=== PATIENT | female | born 1995 | race African-American/Black ===

== ENCOUNTER 2017-02-11 17:23 | Emergency (ER) | payer SELFPAY ==
[~2017-02-11] VITALS: Ht 161.3 cm; Wt 72.5 kg
[2017-02-11 17:28] VITALS: BP 131/72; PULSE 85; RESP 15; TEMP 98; O2SAT 98
[2017-02-11] MEDS ORDERED: CEPH-460 PO (17:53)
[2017-02-11] MEDS ORDERED: IBUP800T23 PO (17:53)
--- NOTE | 2017-02-11 17:55 | PD ---
HPI Chief Complaint: Laceration/Skin Injury Time Seen by Provider: 17:51 Travel History International Travel<30 days: No Contact w/Intl Traveler<30days: No Traveled to known affect area: No History of Present Illness HPI 21-year-old female presents emergency Department with complaint of a laceration to her right pinky finger from a knife while cutting a potato. Reporting updating her tetanus vaccination. Reports numbness to the finger but denies loss of sensation. Has decreased range of motion at the DIP joint of the pinky finger. Has applied pressure and a dressing to control bleeding. Has no other medical complaints. No known allergies. No other modifying factors or associated signs and symptoms. PFSH Past Medical History ?: Not LMP: 01/09/17 Social History Tobacco Use: No Allergies-Medications (Allergen,Severity, Reaction): Coded Allergies: No Known Allergies (Unverified , 02/11/17) Reported Meds & Prescriptions Reported Meds & Active Scripts Active Ibuprofen 800 Mg Tab 800 Mg PO Q6HR PRN Keflex (Cephalexin) 500 Mg Cap 500 Mg PO Q8H 7 Days Review of Systems Except as stated in HPI: all other systems reviewed are Neg Physical Exam Narrative GENERAL: Well-nourished, well-developed female patient, in no acute distress SKIN: Warm and dry. Approximately 1 cm laceration to the palmar aspect of the fifth digit just above the PIP joint; bleeding controlled; possible flexor tendon laceration; patient is unable to flex at the DIP joint; good cap refill; finger with good opposition; sensory intact. Laceration is approximately 0.5 cm deep. HEAD: Atraumatic. Normocephalic. EYES: Pupils equal and round. No scleral icterus. No injection or drainage. ENT: Mucosa pink and moist. Airway patent. NECK: Trachea midline. CARDIOVASCULAR: Regular rate. RESPIRATORY: No accessory muscle use. GASTROINTESTINAL: Round. MUSCULOSKELETAL: No obvious deformities. No clubbing. No cyanosis. No edema. NEUROLOGICAL: Awake and alert. Oriented 3. No obvious cranial nerve deficits. Motor grossly within normal limits. Normal speech. PSYCHIATRIC: Appropriate mood and affect; insight and judgment normal. Data Data Last Documented VS Vital Signs Date Time Temp Pulse Resp B/P Pulse Ox O2 Delivery O2 Flow Rate FiO2 02/11/17 17:28 98.0 85 15 131/72 98 Orders Bupivacaine Pf 0.5% Inj (Marcaine Pf 0.5 (02/11/17 18:00) Lidocaine 1% Inj (50 Ml) (Xylocaine 1% I (02/11/17 18:00) Ibuprofen (Motrin) (02/11/17 18:00) Mandatory Outpatient Referral (02/11/17 18:00) [facility] Medical Decision Making Medical Screen Exam Complete: Yes Emergency Medical Condition: Yes Medical Record Reviewed: Yes Differential Diagnosis Finger laceration, contusion, abrasion Narrative Course 21-year-old female with laceration to the palmar aspect of her right pinky finger. Up-to-date on tetanus vaccination.. Procedure note for laceration repair. 1803: Call placed to Dr. Marte, hand surgeon. 1835: I spoke with Dr. Marte, hand surgeon, and she recommended to close the laceration and for the patient to call her office on Tuesday morning at a.m. to schedule an appointment. Mandatory outpatient referral placed for patient to follow up for possible tendon laceration. Instructed patient to follow up with hand surgeon on Tuesday. Finger splint provided for support. Keflex and ibuprofen prescribed for home. Instructed patient to follow up with primary care provider. Patient verbalizes understanding and agreement with treatment plan. Patient is medically cleared and stable for discharge. Discussed reasons to return to the emergency department. Patient agrees with treatment plan. The patients vital signs are stable and the patient is stable for outpatient follow-up and treatment. Patient discharged home, stable and in no acute distress. Procedures Procedure Narrative LACERATION LOCATION: [place] aspect of the right fifth finger LENGTH: 1cm NUMBER OF STITCHES/AGUS: 3 simple interrupted sutures REPAIR: The area of the laceration was prepped with Betadine and sterilely draped. The finger was digitally blocked with 1% lidocaine and 0.5% bupivacaine. The wound was copiously irrigated and explored without evidence of foreign body, tendon injury or neurovascular injury. The wound was closed using 4-0 Prolene. This was a single layer repair. A sterile dressing was applied. The patient was advised to keep the dressing clean and dry. Patient tolerated the procedure well. Diagnosis Primary Impression: Finger laceration Qualified Code: S61.216A - Laceration of right little finger without foreign body without damage to nail, initial encounter Referrals: Dominique Marte MD Hand Surgeon Primary Care Physician Patient Instructions: Care For Your Stitches (ED), Finger Laceration (ED), General Instructions Departure Forms: Tests/Procedures, Work Release Enter return to work date: Feb 15, 2017 Additional Instructions: Keep area clean and dry Limit pinky finger activity to decrease risk of sutures coming undone Ibuprofen or Tylenol as instructed not needed for pain and inflammation Ice pack to area as needed to decrease pain Return to the emergency department or follow-up with primary care provider in 7- 10 days for suture removal Follow up with primary care provider within 2-[address] Marte, hand surgeon, on Tuesday morning at 8 AM to schedule an appointment for follow-up Return to the emergency department immediately with worsening of symptoms, particularly if reddened streaks up or down the affected extremity from the suture site, fever, numbness/tingling in the affected extremity, loss of sensation in the affected extremity, severe swelling of the affected Med/Other Pt SpecificInfo: Prescription(s) given Scripts Ibuprofen 800 Mg [id number] Mg PO Q6HR PRN (PAIN) #30 TAB Ref 0 Prov:Joanne Herrera 02/11/17 Cephalexin (Keflex)500 Mg [id number] Mg PO Q8H 7 Days Ref 0 Prov:Joanne Herrera 02/11/17 Disposition: 01 DISCHARGE HOME Condition: Stable Joanne Herrera Feb 11, 2017 17:55
[2017-02-11] MEDS ORDERED: LIDOCAINE HCL 1% 50 ML VIAL INFIL ONE (18:00)
[2017-02-11] MEDS ORDERED: BUPIVACAINE HCL PF 0.5% 10 ML VIAL INFIL ONE (18:00)
[2017-02-11] MEDS ORDERED: IBUPROFEN 800 MG TAB PO ONE (18:00)
== END 2017-02-11 19:15 | disposition home or self-care (01) ==
LOC: NEPK 17:23
DX: S61.216A Laceration without foreign body of right little finger without damage to nail, initial encounter (principal); W26.0XXA Contact with knife, initial encounter; Y93.G3 Activity, cooking and baking; Y92.000 Kitchen of unspecified non-institutional (private) residence as the place of occurrence of the external cause
CPT/HCPCS: 12001

== ENCOUNTER 2017-02-22 14:22 | Day surgery (SDC) | payer SELFPAY ==
[~2017-02-22] VITALS: Ht 160 cm; Wt 78.0 kg
[~2017-02-22 14:22] MED LIST: CEPH-460 PO; IBUP800T23 PO; NEOSTIGMINE 3 MG/3 ML SYR IV ONE; ONDANSETRON HCL 4 MG/2 ML VIAL IV PUSH ONE; PROPOFOL 200 MG/20 ML AMP IV ONE
[2017-02-22] MEDS ORDERED: ceFAZolin INJ 1,000 MG VIAL ONE (15:21)
[2017-02-22] MEDS ORDERED: SODIUM CHLORIDE 0.9% INJ 100 ML ONE (15:21)
[2017-02-22] MEDS ORDERED: POVIDONE IODINE 5% (ANTISEPSIS KIT) 4 APPLICATIONS EACH NARE PRN (15:30)
[2017-02-22] MEDS ORDERED: LACTATED RINGER'S 1000 ML IV PRN (15:30)
[2017-02-22] MEDS ORDERED: CHLORHEXIDINE GLUCONATE 2 % 1 PACK (2 CLOTHS) TOPICAL PRN (15:30)
[2017-02-22] MEDS ORDERED: INSULIN HUMAN REGULAR 1,000 UNITS/10 ML VIAL SQ PRN (15:30)
[2017-02-22] MEDS ORDERED: BUPIVACAINE HCL PF 0.5% 30 ML VIAL ONE (15:33)
[2017-02-22] MEDS ORDERED: MINERAL OIL 10 ML VIAL ONE (15:33)
[2017-02-22] MEDS ORDERED: BACITRACIN TOP OINT 15 GM TUBE ONE (15:33)
[2017-02-22] MEDS ORDERED: LIDOCAINE HCL 2% 50 ML VIAL ONE (15:36)
[2017-02-22] MEDS ORDERED: METOPROLOL TARTRATE 25 MG TAB PO PRN (15:45)
[2017-02-22] MEDS ORDERED: DEXAMETHASONE SOD PHOS 4 MG/ML VIAL ONE (15:59)
[2017-02-22] MEDS ORDERED: FAMOTIDINE 20 MG/2 ML VIAL ONE ×2 (15:59→16:00)
[2017-02-22] MEDS ORDERED: ceFAZolin 1,000 MG/NS 100 ML IV SCH ×2 (16:00)
[2017-02-22] MEDS ORDERED: SODIUM CHLORID 0.9% 500 ML IV PRN (16:00)
[2017-02-22] MEDS ORDERED: ACETAMINOPHEN 1000 MG/100 ML 100 ML IV ONE (16:04)
[2017-02-22 16:05] LABS: BETA HCG QUANT LESS THAN 1 MIU/ML (0-5)
[2017-02-22] MEDS ORDERED: NEOMYCIN/POLYMYXIN 1 ML G.U. IRRIGANT IRRIGATION ONE (16:56)
[2017-02-22] MEDS ORDERED: DO NOT ADM ANY ANTICOAGULANT DRUGS PRN (18:55)
[2017-02-22] MEDS ORDERED: *morphine SULFATE 8 MG/ML PERIprocedure ONLY ONE (19:05)
[2017-02-22] MEDS ORDERED: MIDAZOLAM HCL 2 MG/2 ML VIAL ONE (19:20)
[2017-02-22] MEDS ORDERED: OXYC1CAP PO (19:32)
[2017-02-22 20:15] VITALS: BP 115/72; PULSE 97; RESP 20; TEMP 98; O2SAT 97
[2017-02-22] MEDS ORDERED: HYDROmorphone HCL PF 1 MG/ML VIAL IV PRN (20:15)
[2017-02-22] MEDS ORDERED: ONDANSETRON HCL 4 MG/2 ML VIAL IV PRN (20:15)
--- NOTE | 2017-02-23 07:42 | MP ---
cc: DOMINIQUE MARTE DATE OF SURGERY: 02/22/2017 PREOPERATIVE DIAGNOSIS 1. Open wound, right small finger. 2. Flexor digitorum profundus laceration, right small finger. 3. Ulnar digital nerve laceration, right small finger. POSTOPERATIVE DIAGNOSIS 1. Open wound, right small finger. 2. Flexor digitorum profundus laceration, right small finger. 3. Ulnar digital nerve laceration, right small finger. 4. Partial flexor digitorum superficialis laceration right small finger ulnar slip PROCEDURE 1. Repair of flexor digitorum profundus, zone 2, right small finger. 2. Repair of ulnar digital nerve, right small finger, using an AxoGen nerve conduit. 3. Irrigation and debridement of open wound including skin, subcutaneous tissue and muscle, right small finger. SURGEON Dr. Dominique Marte ANESTHESIA General and local. TOURNIQUET TIME 46 minutes at 250 mmHg. IMPLANTS One 3 x 15 mm AxoGen nerve conduit. 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 She reports difficulty flexing the distal interphalangeal of the small finger as well as paresthesias on the ulnar aspect of the small finger. In the emergency room the wound was irrigated and sutured and she was instructed to follow-up. She has been taking antibiotics. Her first evaluation to my office was on 02/21/2017. Clinically the patient had complete laceration of the flexor digitorum profundus as well as the ulnar digital nerve. Treatment options were discussed with the patient including observation versus surgical intervention. The patient understands that with surgical intervention I would have to extend the incision, she may have persistent paresthesias, she would have to be compliant with the flexor tendon protocol and may have stiffness, rupture of the tendon repair, need for additional surgeries including tenolysis, and she requested surgical intervention. DESCRIPTION OF PROCEDURE The patient was identified in the preoperative holding area and the correct extremity was marked. The patient was taken to the operating where anesthesia was induced. The right upper extremity was prepped and draped in normal sterile fashion. The prior horizontal laceration over the middle phalanx was extended proximally and distally in a Gui fashion. Upon making the incision there was noted to be complete laceration of the flexor digitorum profundus with the tendon retracted to the level of the proximal phalanx just distal to the A2 cherie. The distal aspect of the tendon was identified under the A4 cherie. The ulnar aspect of the flexor digitorum superficialis was also completely lacerated without a remaining stump on the bone. The radial aspect of the flexor digitorum superficialis was intact. The decision was made to resect the ulnar portion as repairing it would have required a suture anchor and would have made a more bulky repair and clinically the patient had retained flexion of the PIP joint. The ulnar digital nerve was identified and also found to be completely lacerated and not in a sharp fashion. The radial digital nerve and artery were intact. The wound was irrigated with antibiotic saline then a 4-0 FiberWire was used to suture the flexor digitorum profundus in a King type fashion and this was passed under the A4 cherie. This was repaired again using the 4-0 FiberWire in a King and then a mattress fashion for a 4 strand repair and then epitendinous repair was performed with 6-0 nylon. The most distal aspect of the A4 cherie was vented approximately one-third. The digital nerve was identified and repaired using an AxoGen 3 mm nerve conduit using 8-0 nylon. This had restored flexion cascade to the small finger. The tourniquet was then released. Hemostasis was obtained. The patient had less than two-second capillary refill to the finger. The skin was closed with nylon. The patient was placed into a dorsal blocking splint and awoken from anesthesia without any complications. The patient was educated to avoid extension or forced flexion of the fingers. I will see the patient on in conjunction with Hand Therapy. Again, the importance of compliance with hand therapy was discussed with the patient. It was also discussed she may have persistent paresthesias over the ulnar aspect of the finger. MD ELISEO Gomez/SERGIO /9:11 PM /7:17 AM SIMÓN
== END 2017-02-22 20:55 | disposition home or self-care (01) ==
LOC: HSDC 14:22
PROVIDERS: ATTEND Orthopaedic Surgery
DX: S66.126A Laceration of flexor muscle, fascia and tendon of right little finger at wrist and hand level, initial encounter (principal); S64.01XA Injury of ulnar nerve at wrist and hand level of right arm, initial encounter; W26.0XXA Contact with knife, initial encounter; Y99.0 Civilian activity done for income or pay
CPT/HCPCS: 01810; 26356; 64910; 84702; C9353; J0131; J0690; J1100; J2250; J2270; J2405; J2710; J3010

== ENCOUNTER 2017-06-28 13:48 | Emergency (ER) | payer MEDICAID ==
[~2017-06-28] VITALS: Ht 160 cm; Wt 70.5 kg
[~2017-06-28 13:48] MED LIST changes: -CEPH-460 PO; -IBUP800T23 PO; -NEOSTIGMINE 3 MG/3 ML SYR IV ONE; -ONDANSETRON HCL 4 MG/2 ML VIAL IV PUSH ONE; +OXYC1CAP PO; -PROPOFOL 200 MG/20 ML AMP IV ONE
[2017-06-28 13:51] VITALS: BP 118/60; PULSE 83; RESP 13; TEMP 98.6; O2SAT 95
[2017-06-28 15:13] LABS: AUTOMATED NEUTROPHIL # 9.6 TH/MM3 (1.8-7.7); BASOPHIL # 0.1 TH/MM3 (0-0.2); BASOPHIL % 0.4 % (0.0-2.0); EOSINOPHIL # 0.5 TH/MM3 (0-0.4); EOSINOPHIL % 3.5 % (0.0-4.0); HEMOGLOBIN 13.6 GM/DL (11.6-15.3); LYMPH % 19.2 % (9.0-44.0); LYMPHOCYTE # 2.6 TH/MM3 (1.0-4.8); MEAN CELL VOLUME 87.5 FL (80.0-100.0); MEAN CORPUSCULAR HGB CONC 33.2 % (32.0-36.0); MEAN PLATELET VOLUME 7.7 FL (7.0-11.0); MONO % 5.9 % (0.0-8.0); MONOCYTE # 0.8 TH/MM3 (0-0.9); PLATELET COUNT 276 TH/MM3 (150-450); RED BLOOD COUNT 4.69 MIL/MM3 (4.00-5.30); RED CELL DISTRIBUTION WIDTH 15.4 % (11.6-17.2); WHITE BLOOD COUNT 13.5 TH/MM3 (4.0-11.0)
[2017-06-28 15:15] LABS: BILIRUBIN, URINE NEG (NEG); BLOOD, URINE TRACE (NEG); GLUCOSE,URINE NEG (NEG); KETONE, URINE NEG (NEG); NITRITE,URINE NEG (NEG); SQUAMOUS EPITHELIAL CELL URINE 2 /hpf (0-5); URINE COLOR YELLOW (YELLW/STRAW); URINE LEUKOCYTE ESTERASE NEG (NEG)
[2017-06-28 15:29] LABS: BICARBONATE 25.2 MEQ/L (21.0-32.0); CALCIUM 8.9 MG/DL (8.5-10.1); CREATININE 0.69 MG/DL (0.50-1.00)
--- NOTE | 2017-06-28 15:42 | PD ---
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 Problem/Complaint Time Seen by Provider: 15:33 Travel History International Travel<30 days: No Contact w/Intl Traveler<30days: No Traveled to known affect area: No History of Present Illness HPI C/O VAGINAL SPOTTING , MILD, ONSET TODAY, NO PELVIC PAIN, ALL:NKDA PMHX:DENIES PSHX:DENIES PFSH Past Medical History Cancer: No Cardiovascular Problems: No Diabetes: No Endocrine: No Genitourinary: No Hepatitis: No Hiatal Hernia: No Immune Disorder: No Musculoskeletal: No Neurologic: No Psychiatric: No Reproductive: No Respiratory: No Thyroid Disease: No ?: LMP: 04/22/2017 Past Surgical History AICD: No Body Medical Devices: none Joint Replacement: No Pacemaker: No Social History Alcohol Use: Yes (OCC) Tobacco Use: No Substance Use: No Allergies-Medications (Allergen,Severity, Reaction): Coded Allergies: No Known Allergies (Unverified , 02/22/17) Reported Meds & Prescriptions Reported Meds & Active Scripts Active Reported Oxycodone (Oxycodone HCl) 5 Mg Cap 5 Mg PO Q4H PRN Review of Systems General / Constitutional: No: Fever Eyes: No: Visual changes HENT: No: Headaches Cardiovascular: No: Chest Pain or Discomfort Respiratory: No: Shortness of Breath Gastrointestinal: No: Abdominal Pain Genitourinary: Positive: Vaginal Bleeding Musculoskeletal: No: Pain Skin: No Rash Neurologic: No: Weakness Psychiatric: No: Depression Endocrine: No: Polydipsia Hematologic/Lymphatic: No: Easy Bruising Physical Exam Narrative GENERAL: SKIN: Warm and dry. HEAD: Atraumatic. Normocephalic. EYES: Pupils equal and round. No scleral icterus. No injection or drainage. ENT: No nasal bleeding or discharge. Mucous membranes pink and moist. NECK: Trachea midline. No JVD. CARDIOVASCULAR: Regular rate and rhythm. RESPIRATORY: No accessory muscle use. Clear to auscultation. Breath sounds equal bilaterally. GASTROINTESTINAL: Abdomen soft, non-tender, nondistended. 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 No obvious deformities. NEUROLOGICAL: Awake and alert. No obvious cranial nerve deficits. Motor grossly within normal limits. Five out of 5 muscle strength in the arms and legs. Normal speech. PSYCHIATRIC: Appropriate mood and affect; insight and judgment normal. Data Data Last Documented VS Vital Signs Date Time Temp Pulse Resp B/P (MAP) Pulse Ox O2 Delivery O2 Flow Rate FiO2 06/28/17 13:51 98.6 83 13 118/60 (79) 95 Orders Orders Beta Hcg (Quant/Titer) (06/28/17 14:08) Complete Blood Count With Diff (06/28/17 14:08) Basic Metabolic Panel (Bmp) (06/28/17 14:08) Complete Rh (06/28/17 14:08) Urinalysis - C+S If Indicated (06/28/17 14:08) Labs Laboratory Tests Test 06/28/17 14:25 White Blood Count 13.5 TH/MM3 Red Blood Count 4.69 MIL/MM3 Hemoglobin 13.6 GM/DL Hematocrit 41.0 % Mean Corpuscular Volume 87.5 FL Mean Corpuscular Hemoglobin 29.0 PG Mean Corpuscular Hemoglobin Concent 33.2 % Red Cell Distribution Width 15.4 % Platelet Count 276 TH/MM3 Mean Platelet Volume 7.7 FL Neutrophils (%) (Auto) 71.0 % Lymphocytes (%) (Auto) 19.2 % Monocytes (%) (Auto) 5.9 % Eosinophils (%) (Auto) 3.5 % Basophils (%) (Auto) 0.4 % Neutrophils # (Auto) 9.6 TH/MM3 Lymphocytes # (Auto) 2.6 TH/MM3 Monocytes # (Auto) 0.8 TH/MM3 Eosinophils # (Auto) 0.5 TH/MM3 Basophils # (Auto) 0.1 TH/MM3 CBC Comment DIFF FINAL Differential Comment Urine Color YELLOW Urine Turbidity CLEAR Urine pH 7.0 Urine Specific [place] 1.016 Urine Protein NEG mg/dL Urine Glucose (UA) NEG mg/dL Urine Ketones NEG mg/dL Urine Occult Blood TRACE Urine Nitrite NEG Urine Bilirubin NEG Urine Urobilinogen 2.0 MG/DL Urine Leukocyte Esterase NEG Urine RBC 3 /hpf Urine WBC 1 /hpf Urine Squamous Epithelial Cells 2 /hpf Microscopic Urinalysis Comment CULT NOT INDICATED Blood Urea Nitrogen 5 MG/DL Creatinine 0.69 MG/DL Random Glucose 79 MG/DL Calcium Level 8.9 MG/DL Sodium Level 136 MEQ/L Potassium Level 3.6 MEQ/L Chloride Level 104 MEQ/L Carbon Dioxide Level 25.2 MEQ/L Anion Gap 7 MEQ/L Estimat Glomerular Filtration Rate 126 ML/MIN Human Chorionic Gonadotropin, Quant 142912 MIU/ML MDM Medical Decision Making Medical Screen Exam Complete: Yes Emergency Medical Condition: Yes Medical Record Reviewed: Yes Differential Diagnosis UTI V THREATENED AB V Narrative Course H/H STABLE, VSS, QUANT HCG 100K, PATIENT NOT ACTIVELY BLEEDING EXCESSVIELY Diagnosis Primary Impression: THREATENED AB Patient Instructions: General Instructions, Threatened Miscarriage (ED) Additional Instructions: YOU ARE ADVISED FOR PELVIC REST, AVOID SEXUAL INTERCOURSE, TAMPONS OR PLACING ANYTHING INTRAVAGINALLY UNTIL YOU STOP BLEEDING/SPOTTING FOR 48 HRS Disposition: 01 DISCHARGE HOME Condition: Stable Gabriel Danielle MD Jun 28, 2017 15:42
== END 2017-06-28 16:53 | disposition home or self-care (01) ==
LOC: NEPE 13:48
DX: O20.0 Threatened abortion (principal); Z3A.00 Weeks of gestation of pregnancy not specified
CPT/HCPCS: 80048; 81001; 84702; 85025; 86901; 99283